=== PATIENT | male | born 1990 | race Two or more races ===

== ENCOUNTER 2024-02-06 22:54 | Emergency (ER) | payer OTHER ==
[~2024-02-06] VITALS: Ht 172.7 cm; Wt 90.9 kg
[2024-02-06 23:14] VITALS: BP 132/77; PULSE 92; RESP 17; TEMP 97.9; O2SAT 99
== END 2024-02-07 03:21 | disposition home or self-care (01) ==
LOC: EDBD 22:54 → EMS 22:54
CPT/HCPCS: 71250; 72192; 74150; 74176; 99284; Z7502